=== PATIENT | male | born 1970 | race Caucasian/White ===

== ENCOUNTER 2019-05-09 20:27 | Emergency (ER) | payer OTHER ==
[~2019-05-09] VITALS: Ht 193 cm; Wt 109.8 kg
[~2019-05-09 20:27] MED LIST: AMOXICILLIN 50500 MG PO; CONZIP100 MG PO; DOXYCYCLINE 10100 MG PO; PRILOSEC40 MG PO; PRINIVIL20 MG PO; TRAMADOL 50 MG50 MG PO; VENTOLIN HFA 1818 GM INH
[2019-05-09] MEDS ORDERED: LORAZEPAM 0.50.5 MG PO (20:41)
[2019-05-09 21:50] VITALS: BP 154/98
--- NOTE | 2019-05-11 13:57 | EKG ---
[place] [address] ELECTROCARDIOGRAM REPORT Name: JONMARGARET Abdul Room: [facility]#: [id number] Admission: 05/09/19 Attend Phys: Discharge: 05/09/19 Date of : 68 Date of Service: 05/09/192045 Report #: [id number] THIS REPORT FOR: cc: Mitch Madrigal MD, David L. MD Holkins,Primo Yousif MD [facility] ~ THIS REPORT FOR: //name// [facility] ED Test Date: 2019-05-09 Test Time: 20:46:03 Pat Name: MARGARET WEBB Department: Room: Gender: M Reel Winder: HEATH : 1970 Requested By: Abimael Arteaga Order Number: [id number] Reading MD: Primo Christiansen Measurements Intervals [place] Rate: 141 P: 58 MI: 112 QRS: -57 QRSD: 87 T: 33 QT: 282 QTc: 432 Interpretive Statements Sinus tachycardia LAD, consider left anterior fascicular block Possible anteroseptal infarct, old Compared to ECG 05/31/2007 20:55:52 Sinus rate has increased Myocardial infarct finding still present Electronically Signed On 05-10-2019 12:51:25 REFUND SPECIALIST by Primo Christiansen [email or web address] <ELECTRONICALLY SIGNED> By: Primo Christiansen MD, [facility] 05/10/19 1251 45 45 Primo Christiansen MD, [facility] /EPI
== END 2019-05-09 21:51 | disposition home or self-care (01) ==
LOC: M.ERS 20:27
DX: F41.9 Anxiety disorder, unspecified (principal); F31.9 Bipolar disorder, unspecified

== ENCOUNTER → 2019-05-13 | Outpatient (CLI) | payer OTHER ==
[~2019-05-13] MED LIST changes: +LORAZEPAM 0.50.5 MG PO
== END ==
LOC: M.ULTRA 09:10
DX: K76.0 Fatty (change of) liver, not elsewhere classified (principal); F43.10 Post-traumatic stress disorder, unspecified; R16.2 Hepatomegaly with splenomegaly, not elsewhere classified

== ENCOUNTER → 2020-01-25 | Outpatient (CLI) | payer OTHER | LOC: M.ULTRA 10:00 | PROVIDERS: ATTEND Internal Medicine | DX: E04.2 Nontoxic multinodular goiter (principal); E05.90 Thyrotoxicosis, unspecified without thyrotoxic crisis or storm ==

== ENCOUNTER 2020-05-03 04:28 | Emergency (ER) | payer OTHER ==
[~2020-05-03] VITALS: Ht 195.6 cm; Wt 127.0 kg
[2020-05-03 05:04] LABS: ABSOLUTE EOSINOPHILS 0.1 thou/uL (0.0-0.7); ABSOLUTE LYMPHOCYTES 2.3 thou/uL (0.8-5.3); ABSOLUTE MONOCYTES 0.7 thou/uL (0.0-1.2); ABSOLUTE NEUTROPHILS 3.1 thou/uL (1.6-8.1); BASOPHILS 0.7 %; EOSINOPHILS 2.2 %; HEMATOCRIT 44.5 % (42.0-52.0); HEMOGLOBIN 15.3 gm/dL (14.0-18.0); LYMPHOCYTES 37.2 %; MCH 29.8 pg (26.0-34.0); MCHC 34.4 g/dL (28.0-37.0); MCV 86.6 fL (80.0-100.0); MONOCYTES 10.8 %; MPV 9.1 fl. (7.2-11.1); NUCLEATED RBCS 0 /100WBC; PLATELET COUNT* 199 thou/uL (150-400); POLYS 49.1 %; RBC 5.13 mil/uL (4.50-6.00); RDW-CV 12.8 % (10.5-14.5); WBC 6.3 thou/uL (4.0-11.0)
[2020-05-03 05:15] LABS: ALBUMIN 3.7 g/dL (3.4-5.0); CALCIUM 8.9 mg/dL (8.5-10.1); POTASSIUM 3.7 mmol/L (3.5-5.1); TOTAL BILIRUBIN 0.3 mg/dL (<0.1-1.0); TOTAL PROTEIN 7.3 g/dL (6.4-8.2)
[2020-05-03 06:20] LABS: URINE BILIRUBIN NEGATIVE (Negative); URINE BLOOD TRACE (Negative); URINE CLARITY CLEAR; URINE COLOR YELLOW; URINE GLUCOSE-RANDOM NEGATIVE (Negative); URINE KETONES NEGATIVE (Negative); URINE LEUKOCYTES-REFLEX NEGATIVE (Negative); URINE NITRITE-REFLEX NEGATIVE (Negative); URINE PROTEIN NEGATIVE (Negative); URINE SPECIFIC GRAVITY 1.025 (1.005-1.030); URINE UROBILINOGEN 0.2 E.U./dl (0.2-1.0)
[2020-05-03 06:26] LABS: AMP/METHAMP Negative (Negative); BARBITURATES Negative (Negative); BENZODIAZEPINES Negative (Negative); COCAINE Negative (Negative); METHADONE Negative (Negative); OPIATES Negative (Negative); PCP Negative (Negative); THC POSITIVE (Negative)
[2020-05-03 06:40] VITALS: BP 143/96
--- NOTE | 2020-05-03 09:07 | EKG ---
[place] [address] ELECTROCARDIOGRAM REPORT Name: MARGARET STILL Room: [facility]#: [id number] Admission: 05/03/20 Attend Phys: Discharge: 05/03/20 Date of : 68 Date of Service: 05/03/20 0444 Report #: [id number] THIS REPORT FOR: //name// [facility] ED Test Date: 2020-05-03 Test Time: 04:44:30 Pat Name: RAMEZTHAIS JON Department: Room: Gender: Podiatry Doctor: : 1970 Requested By: Janis Still Order Number: [id number] MD: Alonso Sepulveda Measurements Intervals [place] Rate: 86 P: 24 [place]: 173 QRS: -55 QRSD: 96 T: 20 QT: 380 QTc: 455 Interpretive Statements Sinus rhythm Possible left atrial enlargement Left anterior fascicular block Left ventricular hypertrophy, by voltage Compared to ECG 05/09/2019 20:46:03 Left ventricular hypertrophy now present Sinus tachycardia no longer present Myocardial infarct finding no longer present Electronically Signed On 05-03-2020 9:07:04 DECK ENGINEER by Alonso Sepulveda [email or web address] <ELECTRONICALLY SIGNED> By: Alonso Sepulveda MD, FACC 05/03/20 0907 3 3 Alonso Sepulveda MD, FAC /EPI
== END 2020-05-03 06:40 | disposition home or self-care (01) ==
LOC: M.ERS 04:28
PROVIDERS: Emergency Medicine
DX: S01.81XA Laceration without foreign body of other part of head, initial encounter (principal); Z79.899 Other long term (current) drug therapy; X58.XXXA Exposure to other specified factors, initial encounter; Y93.89 Activity, other specified; Y92.89 Other specified places as the place of occurrence of the external cause; Y99.9 Unspecified external cause status

== ENCOUNTER 2020-05-03 09:13 | Emergency (ER) | payer OTHER ==
[~2020-05-03] VITALS: Ht 195.6 cm; Wt 127.0 kg
[2020-05-03 09:44] LABS: URINE BILIRUBIN NEGATIVE (Negative); URINE BLOOD 1+ (Negative); URINE CLARITY CLEAR; URINE COLOR YELLOW; URINE GLUCOSE-RANDOM NEGATIVE (Negative); URINE KETONES NEGATIVE (Negative); URINE LEUKOCYTES NEGATIVE (Negative); URINE NITRITE NEGATIVE (Negative); URINE PROTEIN NEGATIVE (Negative); URINE UROBILINOGEN 0.2 E.U./dl (0.2-1.0)
[2020-05-03 09:51] LABS: AMP/METHAMP Negative (Negative); BARBITURATES Negative (Negative); BENZODIAZEPINES Negative (Negative); COCAINE Negative (Negative); METHADONE Negative (Negative); OPIATES Negative (Negative); PCP Negative (Negative); THC POSITIVE (Negative)
[2020-05-03 09:59] LABS: ABSOLUTE BASOPHILS 0.1 thou/uL (0.0-0.2); ABSOLUTE EOSINOPHILS 0.1 thou/uL (0.0-0.7); ABSOLUTE LYMPHOCYTES 1.8 thou/uL (0.8-5.3); ABSOLUTE MONOCYTES 1.2 thou/uL (0.0-1.2); ABSOLUTE NEUTROPHILS 9.3 thou/uL (1.6-8.1); BASOPHILS 0.4 %; EOSINOPHILS 0.4 %; HEMATOCRIT 45.3 % (42.0-52.0); HEMOGLOBIN 15.4 gm/dL (14.0-18.0); LYMPHOCYTES 14.6 %; MCH 29.3 pg (26.0-34.0); MCHC 34.1 g/dL (28.0-37.0); MCV 85.9 fL (80.0-100.0); MONOCYTES 9.4 %; MPV 8.8 fl. (7.2-11.1); NUCLEATED RBCS 0 /100WBC; PLATELET COUNT* 199 thou/uL (150-400); POLYS 75.2 %; RBC 5.28 mil/uL (4.50-6.00); RDW-CV 12.8 % (10.5-14.5); WBC 12.3 thou/uL (4.0-11.0)
[2020-05-03 10:05] LABS: CALCIUM 9.1 mg/dL (8.5-10.1); POTASSIUM 4.1 mmol/L (3.5-5.1)
[2020-05-03 10:09] LABS: ALBUMIN 4.1 g/dL (3.4-5.0); DIRECT BILIRUBIN 0.2 mg/dL (<0.1-0.3); TOTAL BILIRUBIN 0.5 mg/dL (<0.1-1.0); TOTAL PROTEIN 7.8 g/dL (6.4-8.2)
[2020-05-03 10:11] LABS: SALICYLATE < 2.8 mg/dL (2.8-20.0)
[2020-05-03 10:12] LABS: ACETAMINOPHEN < 2 ug/mL (10-30); ALCOHOL < 10 mg/dL (<10)
[2020-05-03 10:12] LABS: BACTERIA 1-9 Few /HPF (None Seen); CASTS None Seen /LPF (None Seen); CRYSTALS None Seen /LPF (None Seen); MUCUS 0-3 Light strn/LPF (None Seen); SQUAMOUS 0-3 Few /LPF (0-3); URINE RBC 3-10 Few /HPF (0-2); URINE WBC 0-5 Rare /HPF (0-5)
--- NOTE | 2020-05-03 15:52 | EKG ---
[place] [address] ELECTROCARDIOGRAM REPORT Name: MARGARET WEBB Room: [facility]#: [id number] Admission: 05/03/20 Attend Phys: Discharge: Date of : [birth year] Date of Service: 05/03/2048 Report #: [id number] THIS REPORT FOR: //name// [facility] ED Test Date: 2020-05-03 Test Time: 09:48:32 Pat Name: MARGARET WEBB Department: Room: Gender: Commercial Relief Driver: [facility] : 1970 Requested By: Philip Jordan Order Number: [id number] MD: Alonso Sepulveda Measurements Intervals [place] Rate: 73 P: 62 MI: 170 QRS: -49 QRSD: 91 T: 30 QT: 373 QTc: 411 Interpretive Statements Sinus rhythm Left anterior fascicular block compared to ECG 05/03/2020 04:44:30 No significant changes noted Electronically Signed On 05-03-2020 15:52:41 CHANGE COORDINATOR by Alonso Sepulveda [email or web address] <ELECTRONICALLY SIGNED> By: Alonso Sepulveda MD, FAC 05/03/20 1552 0948 0948 Alonso Sepulveda MD, [facility] /EPI
[2020-05-04 09:56] VITALS: BP 162/106
== END 2020-05-04 09:58 ==
LOC: M.ERS 09:13
PROVIDERS: Emergency Medicine
DX: F32.9 Major depressive disorder, single episode, unspecified (principal); R45.851 Suicidal ideations; Z20.822 Contact with and (suspected) exposure to COVID-19

== ENCOUNTER → 2020-11-02 | Outpatient (CLI) | payer OTHER | LOC: M.RAD 12:15 | PROVIDERS: ATTEND Internal Medicine | DX: M25.462 Effusion, left knee (principal); M89.9 Disorder of bone, unspecified ==

== ENCOUNTER 2020-12-23 23:26 | Emergency (ER) | payer OTHER ==
[~2020-12-23] VITALS: Ht 195.6 cm; Wt 140.6 kg
[2020-12-23] MEDS ORDERED: LISINOPRIL20 MG PO (23:47)
[2020-12-23] MEDS ORDERED: LORAZEPAM 1 MG T1 MG (23:48)
[2020-12-23] MEDS ORDERED: DIVALPROEX SOD250 M3 PO (23:48)
[2020-12-23] MEDS ORDERED: OMEPRAZOLE 20 M20 M1 (23:49)
[2020-12-23] MEDS ORDERED: PRAZOSIN HCL2 MG (23:50)
[2020-12-24] MEDS ORDERED: BACLOFEN 10MG T10 MG PO (00:49)
[2020-12-24 00:55] VITALS: BP 139/83
== END 2020-12-24 01:00 | disposition home or self-care (01) ==
LOC: M.ERS 23:26
DX: M54.5 Low back pain (principal); H49.882 Other paralytic strabismus, left eye; F32.9 Major depressive disorder, single episode, unspecified; Z79.899 Other long term (current) drug therapy